=== PATIENT | male | born 1980 | race African-American/Black ===

== ENCOUNTER 2023-09-24 15:16 | Outpatient (CLI) | payer OTHER, SELFPAY ==
--- NOTE | ~2023-09-24 | XR_ITS ---
XR thoracic spine 3V 09/24/2023 15:51 Indication: Scoliosis Procedure: 3 views thoracic spine Comparison: No prior studies for comparison. Findings: There is dextroscoliosis of the thoracic spine centered at T8-9 measuring approximately 13 degrees vertebral body heights are maintained. No fracture or traumatic malalignment. Pedicles intact . No paraspinal soft tissue abnormality. Impression: 1: Dextroscoliosis of the thoracic spine. Reviewed, dictated and finalized at location A. Impression: 1: Dextroscoliosis of the thoracic spine.
--- NOTE | ~2023-09-24 | XR_ITS ---
XR lumbar spine 2-3V 09/24/2023 15:51 Indication: Scoliosis. Procedure: 3 views of the lumbar spine Comparison: No prior studies for comparison. Findings: There is levoscoliosis of the thoracolumbar spine centered at T12 measuring 16 degrees. Jennifer tebral body heights are maintained. No fracture or traumatic malalignment. No evidence for spondyloli sthesis. No significant disc narrowing. Impression: 1: Levoscoliosis of the thoracolumbar spine centered at T12 measuring 16 degrees. Reviewed, dictated and finalized at location A. Impression: 1: Levoscoliosis of the thoracolumbar spine centered at T12 measuring 16 degree s.
--- NOTE | ~2023-09-24 | XR_ITS ---
XR_CERV2-3V_CR 09/24/2023 15:51 Indication: Scoliosis. History of multiple sclerosis. Procedure: 5 views of the cervical spine Comparison: No prior studies for comparison. Findings: There is reversal of cervical lordosis. There is levocurvature of the cervical spine. Lung apices are normal. C2 is not adequately visualized on lateral or AP views. No prevertebral soft tissu e abnormality is seen. The remainder of the vertebral body heights are maintained. No foreign bodies. Impression: 1: Limited study for evaluation of C2. Reversal of cervical lordosis may be due to muscle spasm and/o r patient positioning. Reviewed, dictated and finalized at location A. Impression: 1: Limited study for evaluation of C2. Reversal of cervical lordosis may be due to muscle spasm and/or patient positioning.
== END 2023-09-24 15:17 | disposition home or self-care (01) ==
LOC: ANHIMG 15:24
PROVIDERS: PCP Student in an Organized Health Care Education/Training Program; Visit Provider Student in an Organized Health Care Education/Training Program
DX: M41.84 Other forms of scoliosis, thoracic region (principal)
CPT/HCPCS: 72040; 72072; 72100